=== PATIENT | male | born 1990 | race American Indian/Alaskan Native ===

== ENCOUNTER 2021-12-23 10:15 | Emergency (ER) | payer SELFPAY ==
[2021-12-23 10:20] VITALS: BP 122/65
--- NOTE | 2021-12-23 12:06 | Emergency Department Report ---
Chief Complaint: Urogenital-Male Stated Complaint: STD CHECK Time Seen by Provider: 12/23/21 11:47 - HPI History of Present Illness: 31-year-old -[place] male presents to the emergency room concerned that he may still have chlamydia. Patient states that he was treated a few days ago and then started to have symptoms. He was checked at [facility] and was told that he was positive for chlamydia. Patient comes in stating that he just does not feel right he feels like he is straining down in his penis area. Patient denies any testicular testicular pain or testicular swelling. - Exam Vital Signs: Vital Signs 12/23/21 10:19 Temperature 98.9 F Pulse Rate 76 Respiratory 16 Rate Blood Pressure 122/65 [Right] O2 Sat by Pulse 98 Oximetry MSE screening note: Focused history and physical exam performed. Due to findings the following was ordered: 31-year-old -[place] male presents to the emergency room concerned that he may still have chlamydia. Patient states that he was treated a few days ago and then started to have symptoms. He was checked at [facility] and was told that he was positive for chlamydia. Patient comes in stating that he just does not feel right he feels like he is straining down in his penis area. Patient denies any testicular testicular pain or testicular swelling. Provider offered treatment patient declined and states he will follow-up at the health department. ED Medical Decision Making - Medical Decision Making 31-year-old -[place] male presents to the emergency room concerned that he may still have chlamydia. Patient states that he was treated a few days ago and then started to have symptoms. He was checked at [facility] and was told that he was positive for chlamydia. Patient comes in stating that he just does not feel right he feels like he is straining down in his penis area. Patient denies any testicular testicular pain or testicular swelling. Patient was offered to be treated he declined and states he will follow-up health department. ED Disposition for MSE Clinical Impression: Urethritis Disposition: 07 LEFT AWOL/ELOPED Is pt being admited?: No Does the pt Need Aspirin: No Condition: Stable Forms: STI Treatment and Prevention
== END 2021-12-23 13:05 | disposition left against medical advice (07) ==
LOC: ED 10:15
DX: N34.2 Other urethritis (principal); Z53.21 Procedure and treatment not carried out due to patient leaving prior to being seen by health care provider